=== PATIENT | male | born 1985 | race Caucasian/White ===

== ENCOUNTER 2020-06-23 15:23 | Emergency (ER) | payer OTHER, SELFPAY ==
--- NOTE | 2020-06-23 15:27 | [facility].EDGENADL ---
ED Disposition Clinical Impression: Laceration Disposition: Home, Self-Care Condition on Discharge: Good Referrals: Provider,Referral, [Primary Care Provider] - 3 days Time of Disposition: 16:29 - Critical Care Critical Care Time: No Attestation: On , the high probability of a clinically significant, sudden or life threatening deterioration of the following system(s) required my full and direct attention, intervention and personal management. The time I documented below is in addition to time spent performing reported procedures but includes the following listed in this critical care notation. Medical Decision Making - Ronn Inquiry Pt receiving controlled substance: No Vital Signs: 06/23/20 15:30 06/23/20 16:00 Temperature 98.3 F Temperature Source Oral Pulse Rate [Right Brachial] 86 Respiratory Rate 16 Blood Pressure 122/86 Blood Pressure [Right Arm] 130/89 Blood Pressure Mean 96 Blood Pressure Mean [Right Arm] 102 Blood Pressure Source [Right Arm] Automatic Cuff 02 Sat by Pulse Oximetry 99 Oxygen Delivery Method Room Air Orders (Tests/Meds): ED MEDICATIONS Discontinued Medications Generic Name Dose Route Start Last Admin Trade Name Freq PRN Reason Stop Dose Admin Tetanus/Reduced Diphtheria/Acell Pertussis 0.5 ml 06/23/20 15:27 06/23/20 16:11 Tet/Diphth/Pert-Adult 0.5ml Syringe IM 06/23/20 15:28 Not Given .ONCE ONE Medical Decision Narrative: Presents for laceration. See procedure note for details of closure. Tolerated procedure well. Discussed wound management and need for follow-up. General Adult HPI - General Stated complaint: AO cut left wrist with knife 1500 Time Seen by Provider: 06/23/20 15:27 - History of Present Illness HPI narrative: 34yo M without signet past medical history reports the emergency department secondary to laceration to his left ventral forearm. Patient reports he was using a knife when he was not paying attention. Reports his last tetanus shot was approximately 1 year ago. Denies significant pain at this time. Bleeding is been controlled prior to arrival. No other injuries reportable. - Related Data Allergies Allergy/AdvReac Type Severity Reaction Status Date / Time No Known Allergies Allergy Verified 06/23/20 16:10 [facility] History - Hepatitis A Screen Drug use history?: No Attestation statement:: This patient has been screened for Hepatitis A risk factors. I have reviewed the patient's past medical history: Yes - Social History Tobacco Type: cigarettes # Packs/Day (cigarettes): 1 ROS Obtained: Yes All systems reviewed & no additional complaints - Constitutional Constitutional: Reports system reviewed and no additional complaints, except as docu Physical Exam - General General appearance: alert, in no apparent distress - Head Head exam: atraumatic, normocephalic, normal inspection - Eye Eye exam: Present: normal appearance, PERRL - Respiratory Respiratory exam: Absent: respiratory distress - Cardiovascular Cardiovascular exam: Present: regular rate, normal rhythm - Abdominal Exam Abdominal exam: Present: soft. Absent: distention - Extremities Exam Extremities exam: Present: normal inspection, full ROM, normal capillary refill. Absent: calf tenderness - Neurological Exam Neurological exam: Present: alert, oriented X3 - Psychiatric Psychiatric exam: Present: normal affect, normal mood - Skin Skin exam: Present: warm, dry, other - Expanded Skin Exam Comment: 5 cm linear laceration ventral left forearm. Procedures - Laceration Laceration 1 Site: upper extremity Side (If applicable): left Size (cm): 5 Description: linear Depth: simple, single layer Local Anesthetic: lidocaine 1%, with epi Amount of anesthesia used (mL): 5 Pre-repair: wound explored, irrigated extensively, deep structures intact Skin layer closed with: nylon Size (cm): 4-0 Number of sutures: 5
[2020-06-23 15:30] VITALS: BP 130/89; PULSE 86; RESP 16; TEMP 36.8; O2SAT 99; BMI 23.7
[2020-06-23 16:00] VITALS: BP 122/86
[2020-06-23 16:40] VITALS: BP 125/90; PULSE 72; PULSE 76; RESP 17; TEMP 36.8; O2SAT 98
== END 2020-06-23 16:46 | disposition home or self-care (01) ==
PROVIDERS: Emergency Provider Family Medicine
DX: S51.812A Laceration without foreign body of left forearm, initial encounter (principal); W26.0XXA Contact with knife, initial encounter; Y92.019 Unspecified place in single-family (private) house as the place of occurrence of the external cause
CPT/HCPCS: 12002; 99283